=== PATIENT | male | born 1995 | race African-American/Black ===

== ENCOUNTER 2020-11-20 20:57 | Observation (INO) ==
[2020-11-20] MEDS ORDERED: hydrALAZINE 20 MG/1 ML VIAL IV STA (21:29)
[2020-11-20] MEDS ORDERED: hydrALAZINE 20 MG/1 ML VIAL ONE (21:31)
[2020-11-20 21:37] LABS: Basophils # 0.1 10*3/uL (0.0-0.2); Basophils % 0.4 % (0.0-0.8); Eosinophils # 0.1 10*3/uL (0.0-0.87); Eosinophils % 0.4 % (0.00-10.9); Hematocrit 49.4 VOL% (42.0-52.0); Hemoglobin 16.7 GM/DL (14.0-18.0); Immature Granulocytes % 0.7 %; Immature Granulocytes Absolute 0.18 #; Lymphocytes # 2.4 10*3/uL (1.4-4.0); Lymphocytes % 8.7 % (21.2-54.2); Mean Corpuscular HGB Conc 33.8 GM/DL (32-36); Mean Corpuscular Volume 88.8 FL (87-102); Mean Platelet Volume 11.6 FL (9.6-12.0); Monocytes % 7.2 % (1.7-12.7); Neutrophils % 82.6 % (38.7-73.9); Platelet Count 417 T/CUMM (130-400); Red Blood Count 5.56 MC/CUMM (3.8-5.5); Red Cell Distribution Width 12.7 % (9.3-17.3); White Blood Count 27.1 T/CUMM (4-12)
[2020-11-20 21:47] LABS: PT Patient Result 10.7 SECS (9.8-11.9); Partial Thromboplastin Time 28.1 SECS (23.9-33.8)
[2020-11-20 21:55] LABS: Alanine Aminotransferase 37 U/L (16-61); Albumin 4.3 G/DL (3.4-5.0); Alkaline Phosphatase 117 U/L (45-117); Aspartate Amino Transferase 41 U/L (0-37); Bilirubin,Total < 0.39 MG/DL (0.2-1.0); Blood Urea Nitrogen 8 MG/DL (7-18); Carbon Dioxide 29 MMOL/L (21-32); Estimated Glom Filtration Rate 127 ML/MIN; Glucose 93 MG/DL (74-106); Osmolality,Calculated 280.1 MOS/KG (273-304); Potassium 3.5 MMOL/L (3.5-5.1); Sodium 142 MMOL/L (136-145); Total Protein 8.8 G/DL (5.0-7.5)
[2020-11-20 21:57] LABS: Eosinophils 1 % (0-10); Lymphocytes 8 % (20-55); Platelet Estimate Adequate; Segmented Neutrophils 80 % (50-85); Total Cells Counted 100
[2020-11-20] MEDS ORDERED: ONDANSETRON 4 MG/2 ML VIAL IV STA (22:08)
[2020-11-20] MEDS ORDERED: SODIUM CHLORIDE 0.9% 1,000 ML IV STA (22:08)
[2020-11-20] MEDS ORDERED: LABETALOL 20 MG/4 ML SYRINGE IV STA (22:08)
[2020-11-20] MEDS ORDERED: cefTRIAXone 1,000 MG in SODIUM CHLORIDE 0.9% 100 ML IV STA (23:03)
[2020-11-20 23:15] LABS: Bacteria,Urine Occasional /HPF (Few); Bilirubin,Urine Negative (Negative); Blood, Urine Large mg/dL (Negative); Glucose,Urine (UA) Negative (Negative); Ketones,Urine Negative (Negative); Mucus,Urine Occasional /LPF (Occasional); Nitrite,Urine Positive (Negative); Protein,Urine Negative; RBC,Urine 405 /HPF (0-4); Urine Appearance Slightly Hazy (Clear); Urine Color Yellow (Yellow); Urine Specific Gravity 1.006 (1.001-1.035); Urine Urobilinogen < 2.0 EU/DL (0.2-1.0); WBC,Urine 21 /HPF (0-6)
[2020-11-20] MEDS ORDERED: LEVOFLOXACIN INJ 750 MG in PREMIX 1 EACH IV STA (23:44)
[2020-11-21] MEDS ORDERED: ACETAMINOPHEN 325 MG TABLET PO PRN (01:34)
[2020-11-21] MEDS ORDERED: DEXTROSE 50% 25 GM/50 ML VIAL IV PRN (01:34)
[2020-11-21] MEDS ORDERED: GLUCAGON 1 MG VIAL IM PRN (01:34)
[2020-11-21] MEDS ORDERED: ENOXAPARIN 40 MG/0.4 ML SYRINGE SUBCUT SCH (02:00)
[2020-11-21] MEDS: SODIUM CHLORIDE 0.9% 1,000 ML IV SCH ×2 (02:35→14:40)
[2020-11-21] MEDS: ONDANSETRON 4 MG/2 ML VIAL IV PRN ×2 (04:14→08:59)
[2020-11-21 07:22] LABS: Barbiturates Screen,Urine Negative (Negative); Benzodiazepines Screen,Urine Negative (Negative); Cannabinoid Screen,Urine Positive (Negative); Opiate Screen,Urine Positive (Negative); Phencyclidine Screen,Urine Negative (Negative)
[2020-11-21 08:31] LABS: Basophils % 0.2 % (0.0-0.8); Hematocrit 46.9 VOL% (42.0-52.0); Hemoglobin 15.9 GM/DL (14.0-18.0); Immature Granulocytes % 0.4 %; Immature Granulocytes Absolute 0.07 #; Lymphocytes % 5.7 % (21.2-54.2); Mean Corpuscular HGB Conc 33.9 GM/DL (32-36); Mean Corpuscular Volume 88.7 FL (87-102); Mean Platelet Volume 12.2 FL (9.6-12.0); Monocytes % 5.7 % (1.7-12.7); Platelet Count 378 T/CUMM (130-400); Red Blood Count 5.29 MC/CUMM (3.8-5.5); White Blood Count 17.2 T/CUMM (4-12)
[2020-11-21] MEDS: APIXABAN 2.5 MG TABLET PO SCH ×2 (08:45→20:42)
[2020-11-21] MEDS: GABAPENTIN 400 MG CAPSULE PO SCH ×3 (08:45→20:42)
[2020-11-21 08:49] LABS: Calcium 9.4 MG/DL (8.5-10.1); Osmolality,Calculated 272.7 MOS/KG (273-304); Potassium 4.1 MMOL/L (3.5-5.1)
[2020-11-21] MEDS ORDERED: PANTOPRAZOLE 40 MG TABLET PO SCH (09:00)
[2020-11-21] MEDS ORDERED: PROMETHAZINE INJ 12.5 MG in SODIUM CHLORIDE 0.9% 50 ML IV PRN (11:25)
[2020-11-21] MEDS ORDERED: SUMAtriptan 25 MG TABLET PO PRN (16:47)
[2020-11-21] MEDS ORDERED: cefTRIAXone 1,000 MG in SYRINGE 1 EACH IV SCH (21:00)
[2020-11-22] MEDS: SODIUM CHLORIDE 0.9% 1,000 ML IV SCH ×3 (01:10→13:14)
[2020-11-22 06:00] LABS: Basophils # 0.1 10*3/uL (0.0-0.2); Basophils % 0.6 % (0.0-0.8); Eosinophils # 0.2 10*3/uL (0.0-0.87); Eosinophils % 1.7 % (0.00-10.9); Hematocrit 40.5 VOL% (42.0-52.0); Immature Granulocytes % 0.3 %; Immature Granulocytes Absolute 0.03 #; Lymphocytes # 2.4 10*3/uL (1.4-4.0); Lymphocytes % 26.6 % (21.2-54.2); Mean Corpuscular HGB Conc 32.6 GM/DL (32-36); Mean Corpuscular Volume 91.4 FL (87-102); Monocytes % 11.2 % (1.7-12.7); Neutrophils % 59.6 % (38.7-73.9); Red Blood Count 4.43 MC/CUMM (3.8-5.5); Red Cell Distribution Width 13.2 % (9.3-17.3)
[2020-11-22 06:06] LABS: Platelet Count 278 T/CUMM (130-400)
[2020-11-22 06:07] LABS: Hemoglobin 13.2 GM/DL (14.0-18.0)
[2020-11-22 06:08] LABS: Calcium 8.8 MG/DL (8.5-10.1); Osmolality,Calculated 275.5 MOS/KG (273-304); Potassium 3.7 MMOL/L (3.5-5.1)
[2020-11-22] MEDS: APIXABAN 2.5 MG TABLET PO SCH (08:23)
[2020-11-22] MEDS: GABAPENTIN 400 MG CAPSULE PO SCH ×2 (08:23→15:02)
[2020-11-22] MEDS ORDERED: MAGNESIUM SULF RIDER 2 GM in PREMIX 1 EACH IV ONE (09:00)
[2020-11-22 16:20] VITALS: BP 111/58
== END 2020-11-22 18:42 | disposition home or self-care (01) ==
LOC: EDUNIT# → EDBD → N.ED 20:57 → N.EDINP 20:57 → N.5E 11-21 01:51
PROVIDERS: ADMIT Internal Medicine; ATTEND Internal Medicine